=== PATIENT | male | born 1980 | race Caucasian/White ===

== ENCOUNTER 2019-04-28 10:20 | Emergency (ER) | payer MEDICAID, SELFPAY ==
[2019-04-28 11:05] VITALS: RESP 16; TEMP 37.1; O2SAT 98; BMI 24.4
[2019-04-28 11:58] VITALS: BP 122/67; PULSE 60; RESP 16; O2SAT 97
--- NOTE | 2019-04-28 12:07 | XRR_ITS ---
PROCEDURE INFORMATION: Exam: XR Thoracic Spine, 3 Views Exam date and time: 04/28/2019 12:54 PM Age: 38 years old Clinical indication: Pain and injury or trauma; Injury history: Lifting; Initial encounter; Sprain or strain; Pain in thoracic spine; Injury date: Last night; Additional info: Injury, patient lifting log, felt a pop in midback TECHNIQUE: Imaging protocol: XR of the thoracic spine, 3 views. COMPARISON: No relevant prior studies available. FINDINGS: Vertebrae: Normal. No acute fracture. Normal alignment. Soft tissues: Normal. XR/XR thoracic spine 3V* [id number] IMPRESSION: Unremarkable radiograph.
[2019-04-28] MEDS: ketorolac 60 mg/2 mL INJ IM (12:09)
[2019-04-28] MEDS: orphenadrine 30 mg/mL Inj 2 mL 60 MG IM (12:11)
--- NOTE | 2019-04-28 13:34 | ED_ITS ---
HPI - Back Pain/Injury General: Chief Complaint: Back Pain/Injury Stated Complaint: BACK PAIN Time Seen by Provider: 04/28/19 11:57 Source: patient Mode of arrival: ambulatory Limitations: no limitations History of Present Illness: HPI Narrative: Patient is a 38-year-old male who presents to ED today with complaints of mid back pain after lifting something heavy yesterday. He states when he lifted the object he heard a pop . Patient has a history of a fusion at T11 for degenerative changes. He has not had any numbness, tingling, loss of sensation in his extremities. Denies shortness of breath, chest pain, difficulty breathing. MD elicited complaint: back pain Pertinent past history: prior back pain Onset (ago): day(s) Timing: constant Similar Symptoms Previously: Yes Exacerbating factors: movement Relieving factors: immobilization Context: while lifting Associated symptoms: Deny abdominal pain, dysuria, nausea, syncope, urinary urgency or vomiting Review of Systems Card: Denies: chest pain, palpitations, irregular heart rhythm, edema, lightheadedness, syncope, pre-syncope, shortness of breath on exertion or shortness of breath when lying down Resp: Denies: shortness of breath, productive cough, coughing up blood or chest congestion GI: Denies: abdominal pain, nausea or vomiting : Denies: flank pain, difficulty urinating, painful urination, urinary frequency or urinary urgency Musc: Reports: back pain; Denies: neck pain, extremity pain, extremity swelling, joint pain or joint swelling PFSH ED PFSH: Social History Smoking and tobacco status: current every day smoker Physical Exam Const: COMMON NORMALS: no apparent distress, average body habitus, oriented x3, no limitations, healthy appearing, alert and well nourished Chest: COMMONS NORMALS: inspection of chest normal and palpation of chest normal Resp: COMMON NORMALS: normal respiratory effort and clear to auscultation bilaterally AUSCULTATION: clear to auscultation bilaterally Cardio: COMMON NORMALS: regular rate and regular rhythm RATE: regular rate RHYTHM: regular rhythm Back/Pelvis: THORACIC SPINE/UPPER BACK: Yes thoracic spinal tenderness (TTP of mid/lower thoracic) and Yes paraspinal muscle tenderness Thoracic paraspinal muscle tenderness: right LUMBAR SPINE/LOWER BACK: Yes normal to inspection, Yes lumbar ROM normal, No lumbar spinal tenderness, No paraspinal muscle spasm and Yes straight leg raise negative bilaterally Extremity: COMMON NORMALS: normal to inspection and full ROM Neuro: COMMON NORMALS: oriented x3, moves all extremities, no focal motor deficits, no sensory deficits noted and gait normal SENSORIUM/ORIENTATION: Yes alert Skin: COMMON NORMALS: no rashes or lesions noted GENERAL SKIN EXAM: no rashes or lesions noted Course Vital Signs: Vital signs: Vital Signs Temperature 98.7 F 04/28/19 11:05 Pulse Rate 51 L 04/28/19 13:42 Respiratory Rate 18 04/28/19 13:42 Blood Pressure 118/68 04/28/19 13:42 Pulse Oximetry 98 04/28/19 13:42 MDM - Back Pain/Injury Imaging Data^: XR thoracic: Radiologist's impression: [address] [address] XRay Report Signed Patient: He Garcia Unit #: [id number] : 1980 Age/Sex: 38 / M ADM Date: 04/28/19 Loc: ER Room/Bed: Attending Dr: Ordering Provider/Ordering MD: Heidy Coburn Date of Service: 04/28/19 Procedure(s): XR thoracic spine 3V* [id number] Accession Number(s): [id number] Report Number: [id number] PROCEDURE INFORMATION: Exam: XR Thoracic Spine, 3 Views Exam date and time: 04/28/2019 12:54 PM Age: 38 years old Clinical indication: Pain and injury or trauma; Injury history: Lifting; Initial encounter; Sprain or strain; Pain in thoracic spine; Injury date: Last night; Additional info: Injury, patient lifting log, felt a pop in midback TECHNIQUE: Imaging protocol: XR of the thoracic spine, 3 views. COMPARISON: No relevant prior studies available. FINDINGS: Vertebrae: Normal. No acute fracture. Normal alignment. Soft tissues: Normal. XR/XR thoracic spine 3V* [id number] IMPRESSION: Unremarkable radiograph. Dictated By: Dmitri Sosa MD Signed By: Dmitri Sosa MD Signed Date/Time: 04/28/19 1353 DD/ 1352 Discharge Plan Discharge Patient Disposition: Home, Self-Care Clinical Impression: Strain of mid-back Qualifiers: Encounter type: initial encounter Qualified Code(s): S29.012A - Strain of muscle and tendon of back wall of thorax, initial encounter Condition: Stable Prescriptions: New cyclobenzaprine 10 mg tablet 10 mg PO TID Qty: 14 RF: 0 No Action azithromycin 500 mg tablet 1,000 mg PO ONCE Qty: 2 RF: 0 Discharge Orders: Discharge Order (Routine); Ordered 04/28/19 Ordered By: Heidy Coburn Referrals: Jaci Mcmullen, GENERAL LABORER [Primary Care Provider] - Discharge Diet: Usual diet Discharge Activity: Increase activity as tolerated Patient Instructions: Low Back Strain (ED) Discharge Date/Time: 04/28/19 13:44 Coding Level of Care Code ED House Piping Inspector for Anish Reed
[2019-04-28 13:42] VITALS: BP 118/68; PULSE 51; RESP 18; O2SAT 98
== END 2019-04-28 13:44 | disposition home or self-care (01) ==
PROVIDERS: Emergency Provider Physician Assistant; Family Provider Nurse Practitioner Family; PCP Nurse Practitioner Family
DX: S29.012A Strain of muscle and tendon of back wall of thorax, initial encounter (principal); F17.200 Nicotine dependence, unspecified, uncomplicated; Z98.1 Arthrodesis status; X50.0XXA Overexertion from strenuous movement or load, initial encounter
CPT/HCPCS: 12345; 72072; 96372; 99281; 99283; J1885; J2360

== ENCOUNTER → 2019-09-04 16:04 | Outpatient (BNVA) | payer BC, MEDICAID, SELFPAY | PROVIDERS: Family Provider Nurse Practitioner Family; PCP Nurse Practitioner Family; Visit Provider Nurse Practitioner Family | DX: R05 Cough (principal); J06.9 Acute upper respiratory infection, unspecified | CPT/HCPCS: 87071; 87400; 87635; 87880 ==

== ENCOUNTER → 2019-10-21 10:11 | Outpatient (BNVA) | payer BC, MEDICAID, SELFPAY | PROVIDERS: Family Provider Nurse Practitioner Family; PCP Nurse Practitioner Family; Visit Provider Family Medicine | DX: S69.91XA Unspecified injury of right wrist, hand and finger(s), initial encounter (principal); S66.911A Strain of unspecified muscle, fascia and tendon at wrist and hand level, right hand, initial encounter; W23.1XXA Caught, crushed, jammed, or pinched between stationary objects, initial encounter | CPT/HCPCS: 73130 ==

== ENCOUNTER 2021-03-31 09:22 | Emergency (ER) | payer BC, MEDICAID, SELFPAY ==
[2021-03-31 09:42] VITALS: BP 112/70; PULSE 61; RESP 14; TEMP 36.7; O2SAT 97; BMI 29.0
--- NOTE | 2021-03-31 09:54 | XR_ITS ---
WS: [id number] XR ribs RT mn 3V w CXR1V [id number] REASON FOR EXAM: PAIN AFTER FALL FINDINGS: No fracture or other focal bone abnormality of the right ribs. No right pneumothorax or right pleural effusion. XR/XR ribs RT mn 3V w CXR1V [id number] IMPRESSION: No significant abnormality.
[2021-03-31] MEDS: ketorolac 60 mg/2 mL INJ IM (10:19)
--- NOTE | 2021-03-31 11:09 | W.ED.FALL ---
HPI - Fall General: Chief Complaint: Fall Stated Complaint: Pain in R rib area Time Seen by Provider: 03/31/21 09:54 History of Present Illness: 40-year-old male presents to the emergency room with complaints of right rib pain. Slipped on some ice yesterday and fell while he was carrying some panels and he landed on his right side as he fell. Denies any difficulty breathing no strike his head and not lose consciousness is tender right anterior lower ribs. Pain reviewed deep inspiration no cough no shortness of breath MD complaint: fall Onset (ago): day(s) (1) Fall from: standing Place fall occurred: work Loss of consciousness: None Prolonged down time: no Symptoms prior to fall: none Context: tripped/slipped Location of injury: chest Quality: sharp Associated symptoms-after fall: Reports chest pain; Denies abdominal pain, confusion, difficulty walking, headache(s), hematuria, lightheadedness, neck pain, numbness, short of breath, vertigo or weakness Review of Systems Const: Denies: fever(s), chills, body aches, change in appetite, fatigue or malaise ENMT: Denies: throat pain, ear or mastoid pain, nasal discharge or nasal congestion Card: Reports: chest pain; Denies: lightheadedness Resp: Denies: dyspnea, productive cough or non-productive cough GI: Denies: abdominal pain : Denies: hematuria Musc: Denies: neck pain Skin/Breast: Denies: rash or pruritus Neuro: Denies: headache(s), difficulty walking, vertigo or confusion PFS ED PFSH: Surgical History History of back surgery Family History Mother Emphysema of lung Father , at age 75 Cancer lung Social History Smoking and tobacco status: former smoker Quit status (tobacco): has quit using tobacco Year quit tobacco: 2019 Alcohol intake: never Marital status: Number of children: 3 Current occupational status: employed History of recent travel: No Physical Exam Const: COMMON NORMALS: no acute distress GENERAL APPEARANCE: cooperative and comfortable ORIENTATION/CONSCIOUSNESS: Yes awake, Yes oriented to person, Yes oriented to place and Yes oriented to time HENMT: COMMON NORMALS: normocephalic, atraumatic and hearing grossly normal bilaterally HEAD & SCALP: normocephalic and atraumatic Neck/C-Spine: COMMON NORMALS: no JVD Chest: OTHER: Right lateral anterior rib pain reproducible to palpation no crepitus. Resp: COMMON NORMALS: normal respiratory effort, No retractions, No use of accessory muscles and clear to auscultation bilaterally AUSCULTATION: clear to auscultation bilaterally Cardio: COMMON NORMALS: no JVD, regular rate, regular rhythm and No murmurs present (Cardio) RATE: regular rate RHYTHM: regular rhythm GI: COMMON NORMALS: Soft to palpation and No hepatosplenomegaly present AUSCULTATION: Yes normoactive bowel sounds PALPATION: Yes Soft to palpation, No Tenderness to palpation present (GI), No Guarding due to palpation present (GI) and Yes No hepatosplenomegaly present Extremity: COMMON NORMALS: normal to inspection, capillary refill normal, no clubbing, cyanosis or edema, no calf tenderness and no pedal edema Neuro: SENSORIUM/ORIENTATION: Yes oriented to person, Yes oriented to place and Yes oriented to time Skin: COMMON NORMALS: no rashes or lesions noted GENERAL SKIN EXAM: no rashes or lesions noted Course Vital Signs: Vital signs: Vital Signs Temperature 98.0 F 03/31/21 09:42 Pulse Rate 61 03/31/21 09:42 Respiratory Rate 14 03/31/21 09:42 Blood Pressure 112/70 03/31/21 09:42 Pulse Oximetry 97 03/31/21 09:42 MDM - Fall Medical Decision Making No acute fractures on x-ray. Discharge home follow-up as needed Medical Records I reviewed the patient's medical records. Lab Data I reviewed the patient's lab results. Radiology Impressions Ribs X-Ray 03/31/21 09:54 IMPRESSION: No significant abnormality. Discharge Plan Discharge Patient Disposition: Home Clinical Impression: Rib pain on right side, Fall Condition: Stable Prescriptions: New hydrocodone-acetaminophen 5-325 mg tablet 1 tab PO Q6H PRN (Reason: pain) Qty: 10 0RF diclofenac sodium 75 mg tablet,delayed release (DR/EC) 75 mg PO Q12H PRN (Reason: pain) Qty: 20 0RF Discontinued ibuprofen 800 mg tablet 800 mg PO Q8H 5 Days Qty: 15 0RF No Action cyclobenzaprine 7.5 mg tablet 7.5 mg PO TID PRN (Reason: muscle spasm) Qty: 20 0RF Discharge Orders: Discharge ED (Routine); Ordered 03/31/21 Ordered By: Ulysses Rabago Referrals: Jaci Mcmullen, DIGITAL MARKETING INTERN [Primary Care Provider] - Patient Instructions: Opioid Safety Coding Level of Care Code ED Business Technology Professor for Anish Reed
== END 2021-03-31 12:45 | disposition home or self-care (01) ==
PROVIDERS: Emergency Provider Family Medicine; PCP Nurse Practitioner Family
DX: R07.81 Pleurodynia (principal); Z87.891 Personal history of nicotine dependence
CPT/HCPCS: 71101; 96372; 99283; J1885

== ENCOUNTER → 2021-06-27 10:28 | Outpatient (BNVA) | payer BC, MEDICAID, SELFPAY | PROVIDERS: Visit Provider Family Medicine | DX: K21.9 Gastro-esophageal reflux disease without esophagitis (principal); R53.83 Other fatigue; Z76.89 Persons encountering health services in other specified circumstances | CPT/HCPCS: 80053; 80061; 84443; 85025 ==

== ENCOUNTER 2022-12-27 11:04 | Outpatient (CLI) | payer OTHER, MEDICAID, SELFPAY ==
--- NOTE | 2022-12-27 11:09 | XR_ITS ---
WS: [id number] Lumbar spine, 3 views, 12/27/2022 Clinical Data: Back pain Comparison: None. Findings: No compression fractures or subluxation is seen. There is a posterior lumbosacral fusion with bilater al pedicle screws and connecting rods at L5-S1. There is an artificial disc at L5-S1. There is a smal l anterior superior osteophyte at L5. No disc space narrowing is seen. The transverse processes and S I joints are normal. Impression: Stable posterior lumbosacral fusion L5-S1.
== END 2022-12-27 11:05 | disposition home or self-care (01) ==
PROVIDERS: PCP Family Medicine; Visit Provider Family Medicine
DX: M54.50 Low back pain, unspecified (principal); Z98.1 Arthrodesis status
CPT/HCPCS: 72100

== ENCOUNTER 2023-04-23 08:33 | Emergency (ER) | payer OTHER, MEDICAID, SELFPAY ==
[2023-04-23 08:37] VITALS: BP 148/91; PULSE 100; RESP 16; TEMP 36.8; O2SAT 99; BMI 28.3
[2023-04-23 08:43] VITALS: BP 148/91; PULSE 110; O2SAT 96
--- NOTE | 2023-04-23 09:04 | W.ED.EAR ---
HPI - Ear Problem General: Chief complaint: Ear Stated complaint: ear pain Time Seen by Provider: 04/23/23 08:41 Source: patient Mode of arrival: ambulatory Limitations: no limitations History of Present Illness: Patient is a 42-year-old male who presents to ED today for evaluation of right ear pain that started after he began getting sick with other URI-like symptoms. Patient states all of his kids have colds and he states over the past 2 days he has had a cough, nasal congestion, rhinorrhea, sinus pain/pressure. He is having some pain in his right ear. Patient states I just wanted to get checked out as he has had an extensive surgical history in regards to his right ear. Patient states in February of this year he underwent cholesteatoma removal with what sounds like tympanoplasty and mastoidectomy by Dr. Bowman. Patient states he has been doing good following the surgery apart from over the past 1 to 2 days when he got sick with his other symptoms. He denies fever or headache. No facial nerve palsy. He has not noticed any redness or warmth to the ear or behind it. MD Complaint: ear pain Location: right ear Duration: constant Severity: mild Relieving factors: nothing Exacerbating factors: nothing Context: recent illness Discharge from ear: no Associated symptoms: Reports ear or mastoid pain; Denies fever(s), headache(s), neck pain or tinnitus Treatment prior to arrival: none Review of Systems Const: Denies: fever(s), chills, body aches, fatigue or malaise ENMT: Reports: throat pain, odynophagia, ear or mastoid pain, nasal discharge, nasal congestion and sinus pain; Denies: change in hearing, tinnitus or disequilibrium Card: Denies: chest pain Resp: Denies: dyspnea GI: Denies: nausea or vomiting Musc: Denies: neck pain Skin/Breast: Denies: rash Neuro: Denies: headache(s) or dizziness PFS ED PFSH: Surgical History History of back surgery Family History Mother Emphysema of lung Father , at age 75 Cancer lung Social History Smoking and tobacco/nicotine status: never used tobacco/nicotine Quit status (tobacco/nicotine): has quit using Year quit tobacco: 2019 Alcohol intake: current Alcohol intake frequency: holidays/special occasions only Substance/Drug Use: never Marital status: Number of children: 3 Current occupational status: employed Physical Exam Const: COMMON NORMALS: no acute distress, average body habitus, patient oriented x3, no limitations, healthy appearing, alert and well nourished GENERAL APPEARANCE: cooperative ORIENTATION/CONSCIOUSNESS: Yes awake, Yes oriented to person, Yes oriented to place and Yes oriented to time HENMT: COMMON NORMALS: normocephalic, atraumatic, external ears normal, Normal external nose present and oropharynx normal HEAD & SCALP: normal to inspection, normocephalic and atraumatic FACE & SINUS: normal facial exam and sinus tenderness NOSE: Normal external nose present EXTERNAL EAR: Yes external ears normal EXTERNAL AUDITORY CANAL: Abnormal EAC present EAC laterality: right (mild edema with slight otic discharge-this is probably normal post op) TYMPANIC MEMBRANE: TM normal on the left and TM abnormal TM laterality: right (tympanoplasty) MOUTH: Normal oral and palatal mucosa present and lip normal Eye: GENERAL EYE: appearance normal, both eyes and all related structures Neck/C-Spine: COMMON NORMALS: no lymphadenopathy and no meningeal signs GENERAL: Yes normal visual inspection Extremity: GENERAL: Yes normal exam except as noted Neuro: DENISSE COMA SCALE: document GCS findings [place] coma scale eye opening: Spontaneous [place] coma scale verbal response: Orientated [place] coma scale motor response: Obey commands [place] coma scale total score: 15 COMMON NORMALS: patient oriented x3 and CN's II-XII intact bilaterally SENSORIUM/ORIENTATION: Yes alert, Yes oriented to person, Yes oriented to place and Yes oriented to time MENINGEAL SIGNS: Yes no meningeal signs Course Vital Signs: Vital signs: Vital Signs Temperature 98.3 F 04/23/23 09:13 Pulse Rate 110 H 04/23/23 09:13 Respiratory Rate 16 04/23/23 09:13 Blood Pressure 148/91 04/23/23 09:13 Pulse Oximetry 96 04/23/23 09:13 Oxygen Delivery Me thod Room Air 04/23/23 08:37 MDM - Ear Medical Decision Making I do not suspect any complications at this time related to his cholesteatoma removal, tympanoplasty, mastoidectomy. He has no redness or warmth or pain near incision site. No facial nerve palsy. Nothing to suggest a cavernous sinus thrombosis or intracranial abscess. He states he was given ofloxacin following the surgery and does have leftover antibiotics with refills. Recommend he can start these prophylactically and recommend he contact Dr. Bowman's office today for further instructions. He does have a follow-up appointment with him next week. Recommend he contact their office to see if they need to see him any sooner. Medical Records I reviewed the patient's medical records. No radiology studies performed this visit Discharge Plan Discharge Patient Disposition: Home Clinical Impression: Pain in right ear Condition: Stable Prescriptions: No Action tramadol 50 mg tablet 50 mg PO Q6H PRN (Reason: pain) 7 Days Qty: 28 0RF methocarbamol 750 mg tablet 750 mg PO TID PRN (Reason: pain) Qty: 30 0RF prednisone 20 mg tablet See Rx Instructions .Route .COMPLEX Qty: 20 0RF Rx Instructions: 3 tabs x 3 days, then 2 tabs x 3 days, then 1 tab x 3 days, then 1/2 tab x 3 days. ondansetron 4 mg tablet,disintegrating 4 mg PO Q8H Qty: 20 0RF lidocaine-epinephrine 1 %-1:100,000 solution 1 ml intradermal ONCE Qty: 1 0RF Discharge Orders: Discharge ED (Routine); Ordered 04/23/23 Ordered By: Heidy Coburn Referrals: Stephen Lewis DO [Primary Care Provider] - Activity Restrictions/Additional Instructions: As we discussed begin using your ofloxacin and contact Dr. Bowman's office for further follow-up instructions. Coding Level of Care Code ED Client Relationship Manager for Anish Reed
[2023-04-23 09:13] VITALS: BP 148/91; PULSE 110; RESP 16; TEMP 36.8; O2SAT 96
== END 2023-04-23 09:14 | disposition home or self-care (01) ==
PROVIDERS: Emergency Provider Physician Assistant; PCP Family Medicine
DX: H92.01 Otalgia, right ear (principal); Z87.891 Personal history of nicotine dependence
CPT/HCPCS: 99282